=== PATIENT | female | born 1950 | race Caucasian/White ===

== ENCOUNTER 2017-08-20 07:13 | Day surgery (SDC) | payer OTHER, BC ==
--- OUTSIDE RECORDS SUMMARY | 2017-08-20 07:16 | XMS REPORT ---
:1950 Author Organization eClinicalWorks Care Team Providers Name Role Phone Lalito Perez Provider Role Unavailable Allergies, Adverse Reactions, Alerts Substance Reaction Event Type N.K.D.A. Info Not Available Non Drug Allergy Problems Problem Type Condition Code Onset Dates Condition Status Assessment Need for pneumococcal vaccination Z23 Active Assessment Encounter for screening for other Z11.59 Active viral diseases Assessment Former heavy tobacco smoker Z87.891 Active Problem GERD without esophagitis K21.9 Active Problem Osteoporosis, unspecified M81.0 Active osteoporosis type, unspecified pathological fracture presence Problem Mixed hyperlipidemia E78.2 Active Assessment GERD without esophagitis K21.9 Active Assessment Screening for colon cancer Z12.11 Active Assessment Mixed hyperlipidemia E78.2 Active Assessment Osteoporosis, unspecified M81.0 Active osteoporosis type, unspecified pathological fracture presence Medications Medication Code Code Instructions Start End Date Status Dosage System Date Potassium [facility] 07184772743 99 MG Orally Active 1 tablet Once a day Magnesium ND 03169169605 500 MG Orally Active 1 tablet Once a day with a meal Calcium ND 17542397379 600 MG Orally Active 1 tablet Once a day with meals Vitamin B12 ND 44389847967 1000 MCG Orally Active 1 tablet Once a day Fish Oil ND 87192556739 1000 MG Orally Active 1 capsule Once a day Prolia ND 85479789950 60 MG/ML August 02, Active as directed Subcutaneous 2018 Nexium ND 56315429430 20 MG Orally Active 1 capsule Once a day Simvastatin ND 76395448349 10 MG Orally August 02, Active 1 tablet in Once a day 2018 the evening Results No Known Results Immunizations Vaccine Administration Date Pneumovax August 02, 2017 Summary Purpose eClinicalWorks Submission
--- OUTSIDE RECORDS SUMMARY | 2017-08-20 07:16 | XMS REPORT ---
:1950 Author Organization eClinicalWorks Care Team Providers Name Role Phone Pillo Tillman Provider Role Unavailable Allergies, Adverse Reactions, Alerts Substance Reaction Event Type N.K.D.A. Info Not Available Non Drug Allergy Problems Problem Type Condition Code Onset Dates Condition Status Problem GERD without esophagitis K21.9 Active Problem Osteoporosis, unspecified M81.0 Active osteoporosis type, unspecified pathological fracture presence Problem Mixed hyperlipidemia E78.2 Active Assessment Encounter for screening colonoscopy Z12.11 Active Medications Medication Code Code Instructions Start End Date Status Dosage System Date Calcium ND 79475593394 600 MG Orally Active 1 tablet Once a day with meals Potassium ND 37889867490 99 MG Orally Active 1 tablet Once a day Prolia ND 91275298663 60 MG/ML August 02, Active as directed Subcutaneous 2018 Nexium ND 69718451688 20 MG Orally Active 1 capsule Once a day Fish Oil ND 54231441899 1000 MG Orally Active 1 capsule Once a day Vitamin B12 ND 66597077164 1000 MCG Orally Active 1 tablet Once a day Magnesium ND 61235611626 500 MG Orally Active 1 tablet Once a day with a meal Simvastatin ND 71323923354 10 MG Orally August 02, Active 1 tablet in Once a day 2018 the evening Results No Known Results Summary Purpose eClinicalWorks Submission
[2017-08-20] MEDS ORDERED: Ringers Lactate 1,000 ML IV ONE ×2 (07:31→07:37)
[2017-08-20] MEDS ORDERED: PROPOFOL 200 MG/20 ML VIAL IV ONE ×2 (08:24→09:37)
--- NOTE | 2017-08-20 09:32 | ENDO RPT ---
[address], [address] COLONOSCOPY PROCEDURE REPORT EXAM DATE: 08/20/2017 PATIENT NAME: Chasidy Hopkins MR #: [id number] BIRTHDATE: 1950 ATTENDING: Pillo Tillman DR STATUS: outpatient EVENTS INTERN: Nessa Lanier RN and Manas Mann INDICATIONS: The patient is a 66 yr old Female here for a colonoscopy due to colon cancer screening PROCEDURE PERFORMED: Colonoscopy with biopsy - cold polypectomy MEDICATIONS: Per Anesthesia. ESTIMATED BLOOD LOSS: None CONSENT: The patient understands the risks and benefits of the procedure and understands that these risks include, but are not limited to: sedation, allergic reaction, infection, perforation and/or bleeding. Alternative means of evaluation and treatment include, among others: physical exam, x-rays, and/or surgical intervention. The patient elects to proceed with this endoscopic procedure. DESCRIPTION OF PROCEDURE: During intra-op preparation period all mechanical medical equipment was checked for proper function. Hand hygiene and appropriate measures for infection prevention was taken. Procedure, possible complications, alternatives including, but not limited to possibility of bleeding, perforation, tear, infection, sepsis, need for surgery, need for blood transfusion, were explained to the patient. After the risks, benefits and alternatives of the procedure were thoroughly explained, Informed consent was verified, confirmed and timeout was successfully executed by the treatment team. The patient was placed in the left lateral position. A digital rectal exam was performed and revealed a skin tag and A digital rectal exam was performed and revealed internal hemorrhoids. After appropriate level of anesthesia, the scope was passed. The EC-[id number] ([id number]) endoscope was introduced through the anus and advanced to the cecum, which was identified by both the appendix and ileocecal valve. The quality of the prep was fair. The instrument was then slowly withdrawn as the colon was fully examined. Scope withdrawal time was 10 minutes. COLON FINDINGS: Mild diverticulosis was noted in the left colon. No bleeding was noted from the diverticulosis. A few small smooth semi-pedunculated polyps with friable surfaces and mucous caps were found in the rectum. Multiple biopsies were performed using cold forceps. Sample was obtained and sent to histology. A polypectomy was performed using snare cautery. The resection was complete, the polyp tissue was completely retrieved and sent to histology. Retroflexed views revealed no abnormalities. The scope was then completely withdrawn from the patient and the procedure terminated. ADVERSE EVENTS: There were no complications. IMPRESSIONS: 1. Mild diverticulosis was noted in the left colon 2. Few small semi-pedunculated polyps were found in the rectum; multiple biopsies were performed using cold forceps; polypectomy was performed using snare cautery RECOMMENDATIONS: 1. fiber rich diet 2. await biopsy results 3. avoid NSAIDS for 2 weeks 4. follow-up: office 2 week(s) 5. increase dietary water 6. hemorrhoidal hygiene RECALL: Return in 2 year(s) for Colonoscopy, pending biopsy results. Rectal polyps Pillo Tillman DR eSigned: Pillo Tillman DR 08/20/2017 9:31 AM cc: CPT CODES: ICD9 CODES: PATIENT NAME: Chasidy Hopkins MR#: [id number]
== END 2017-08-20 10:17 | disposition home or self-care (01) ==
LOC: OR 07:13
PROVIDERS: ATTEND Surgery
PROC: 0DBP8ZX Excision of Rectum, Via Natural or Artificial Opening Endoscopic, Diagnostic (ICD-10-PCS; 2017-08-20)
PROC: 0DBP8ZX Excision of Rectum, Via Natural or Artificial Opening Endoscopic, Diagnostic (ICD-10-PCS; principal; 2017-08-20 09:15)
DX: Z12.11 Encounter for screening for malignant neoplasm of colon (principal); K62.1 Rectal polyp; K57.30 Diverticulosis of large intestine without perforation or abscess without bleeding; K64.8 Other hemorrhoids; E78.00 Pure hypercholesterolemia, unspecified; Z90.49 Acquired absence of other specified parts of digestive tract; Z80.1 Family history of malignant neoplasm of trachea, bronchus and lung; Z80.8 Family history of malignant neoplasm of other organs or systems; Z82.49 Family history of ischemic heart disease and other diseases of the circulatory system; Z81.2 Family history of tobacco abuse and dependence
CPT/HCPCS: 88305

== ENCOUNTER 2018-01-26 12:22 | Emergency (ER) | payer OTHER, BC ==
--- OUTSIDE RECORDS SUMMARY | 2018-01-26 12:24 | XMS REPORT ---
[...] Date Status Dosage System Date Calcium ND 87188164604 600 MG Orally Active 1 tablet Once a day with meals Potassium ND 55692293747 99 MG Orally Active 1 tablet Once a day Prolia ND 10933108688 60 MG/ML August 02, Active as directed Subcutaneous 2018 Nexium ND 60548831490 20 MG Orally Active 1 capsule Once a day Fish Oil ND 39857630891 1000 MG Orally Active 1 capsule Once a day Vitamin B12 ND 34706989601 1000 MCG Orally Active 1 tablet Once a day Magnesium ND 67358769225 500 MG Orally Active 1 tablet Once a day with a meal Simvastatin ND 50145298371 10 MG Orally August 02, Active 1 tablet in Once a day 2018 the evening Results No Known Results Summary Purpose eClinicalWorks Submission
--- OUTSIDE RECORDS SUMMARY | 2018-01-26 12:24 | XMS REPORT ---
:1950 Author Organization eClinicalWorks Care Team Providers Name Role Phone Lalito Preez Provider Role Unavailable Allergies, Adverse Reactions, Alerts [...] End Date Status Dosage System Date Potassium [facility] 37682577069 99 MG Orally Active 1 tablet Once a day Magnesium ND 64783232499 500 MG Orally Active 1 tablet Once a day with a meal Calcium ND 60146348995 600 MG Orally Active 1 tablet Once a day with meals Vitamin B12 ND 57549496336 1000 MCG Orally Active 1 tablet Once a day Fish Oil ND 31607325332 1000 MG Orally Active 1 capsule Once a day Prolia ND 87238004805 60 MG/ML August 02, Active as directed Subcutaneous 2018 Nexium ND 97235793618 20 MG Orally Active 1 capsule Once a day Simvastatin ND 49264456739 10 MG Orally August 02, Active 1 tablet in Once a day 2018 the evening Results No Known Results Immunizations Vaccine Administration Date Pneumovax August 02, 2017 Summary Purpose eClinicalWorks Submission
--- OUTSIDE RECORDS SUMMARY | 2018-01-26 12:24 | XMS REPORT ---
:1950 Author Organization eClinicalWorks Care Team Providers Name Role Phone Lalito Perez Provider Role Unavailable Allergies No Known Allergies Problems Problem Type Condition Code Onset Dates Condition Status Assessment Former heavy tobacco smoker Z87.891 Active Problem GERD without esophagitis K21.9 Active Problem Osteoporosis, unspecified M81.0 Active osteoporosis type, unspecified pathological fracture presence Problem Mixed hyperlipidemia E78.2 Active Assessment Osteoporosis, unspecified M81.0 Active osteoporosis type, unspecified pathological fracture presence Assessment GERD without esophagitis K21.9 Active Assessment Mixed hyperlipidemia E78.2 Active Medications Medication Code Code Instructions Start End Date Status Dosage System Date Potassium [facility] 94569330473 99 MG Orally Active 1 tablet Once a day Fish Oil [facility] 48547751372 1000 MG Orally Active 1 capsule Once a day Prolia [facility] 95449857336 60 MG/ML Active as directed Subcutaneous Simvastatin ND 23010155577 20 MG Orally Active 1 tablet in Once a day the evening Vitamin B12 ND 28874615744 1000 MCG Orally Active 1 tablet Once a day Calcium ND 62451760678 600 MG Orally Active 1 tablet Once a day with meals Magnesium ND 08437027427 500 MG Orally Active 1 tablet Once a day with a meal Nexium ND 49372385526 20 MG Orally Active 1 capsule Once a day Results No Known Results Summary Purpose eClinicalWorks Submission
--- OUTSIDE RECORDS SUMMARY | 2018-01-26 12:24 | XMS REPORT ---
[...] presence Problem Mixed hyperlipidemia E78.2 Active Assessment Follow-up exam V67.9 Active Medications Medication Code Code Instructions Start End Date Status Dosage System Date Vitamin B12 [facility] 57313095795 1000 MCG Orally Active 1 tablet Once a day Calcium ND 21801688158 600 MG Orally Active 1 tablet Once a day with meals Potassium ND 38262066190 99 MG Orally Active 1 tablet Once a day Nexium ND 18851192659 20 MG Orally Active 1 capsule Once a day Prolia ND 14837842358 60 MG/ML August 02, Active as directed Subcutaneous 2018 Simvastatin ND 22908421973 10 MG Orally August 02, Active 1 tablet in Once a day 2018 the evening Fish Oil ND 45271729751 1000 MG Orally Active 1 capsule Once a day Magnesium ND 98469433299 500 MG Orally Active 1 tablet Once a day with a meal Results No Known Results Summary Purpose eClinicalWorks Submission
[2018-01-26] MEDS ORDERED: MECLIZINE HCL 12.5 MG TAB ONE ×2 (13:10→13:28)
[2018-01-26] MEDS ORDERED: NA CHLORIDE 0.9% 500 ML ONE (13:10)
[2018-01-26] MEDS ORDERED: ONDANSETRON 4 MG/2 ML VIAL ONE (13:10)
--- NOTE | 2018-01-26 13:15 | RAD REPORT ---
EXAM DESCRIPTION: CT - Head Brain Wo Cont - 01/26/2018 1:05 pm CLINICAL HISTORY: Dizziness, syncope COMPARISON: None. TECHNIQUE: Axial 5 mm thick images of the head were obtained without IV contrast. All CT scans are performed using dose optimization technique as appropriate and may include automated exposure control or mA/KV adjustment according to patient size. FINDINGS: No intracranial hemorrhage, mass, edema or shift of mid-line structures. No acute infarcti on changes seen. No significant atrophy or chronic ischemic change. Ventricles are normal. Mastoid air cells and visualized portions of the paranasal sinuses are clear. No acute bony findings. IMPRESSION: Negative CT head examination for acute or suspicious finding.
[2018-01-26 13:22] LABS: Absolute Lymphocytes (CBC) 1.7 K/uL (0.7-4.9); Absolute Monocytes 0.4 K/uL (0.1-1.3); Absolute Neutrophil 3.3 K/uL (1.8-8.0); Basophils % 0.4 % (0-1.3); Eosinophils % 2.7 % (0-4.4); Lymphocytes % 30.2 % (15.3-44.8); MCH 31.4 pg (27.0-35.0); MCV 89.3 fL (80-100); MPV 7.8 fL (7.6-11.3); Monocytes % 6.4 % (3.3-12.3); RBC Red Blood Cell Count 4.37 M/uL (3.86-4.86)
--- NOTE | 2018-01-26 13:29 | EKG ---
Test Date: 2018-01-26 Test Time: 13:11:06 Logger Driving Horses: ALEX MEASUREMENT RESULTS: Intervals: Rate: 65 WI: 188 QRSD: 76 QT: 398 QTc: 413 [place]: P: 41 WI: 188 QRS: -9 T: 20 INTERPRETIVE STATEMENTS: Normal sinus rhythm Normal ECG No previous ECG available for comparison Electronically Signed On 01-26-18 13:28:54 TUBING MACHINE TENDER by Michele Katz
[2018-01-26 13:37] LABS: Protime INR 0.92
[2018-01-26 13:44] LABS: BUN Blood Urea Nitrogen 16 mg/dL (7-18); Bicarbonate 28 mmol/L (21-32); Glucose Level 115 mg/dL (74-106); Magnesium 2.2 mg/dL (1.8-2.4); Potassium 3.9 mmol/L (3.5-5.1); Sodium Level 142 mmol/L (136-145); Troponin (Emerg Dept Use Only) < 0.02 ng/mL (0.0-0.045)
--- NOTE | 2018-01-26 14:16 | RAD REPORT ---
EXAM DESCRIPTION: MRI - Brain Wo Cont - 01/26/2018 1:59 pm CLINICAL HISTORY: Syncope, dizziness, stroke-like symptoms COMPARISON: CT head same date TECHNIQUE: Sagittal T1-weighted images were obtained along with axial PD, heavily T2-weighted and T2 -FLAIR images. Axial DWI and ADC mapping sequences were also obtained along with coronal heavily T2-w eighted images. FINDINGS: No intracranial hemorrhage, mass or acute infarction. There is no edema or shift of midlin e structures. Trace amounts of chronic ischemic change seen in the cerebral white matter. No signific ant atrophy. Ventricles are normal. Perez-matter/white matter junction is preserved. Signal voids are seen as a normal finding in the major intracranial vessels. Globes and orbital contents unremarkable. No sella or supra sella abnormality. No tonsillar ectopia. Mastoid air cells and paranasal sinuses are clear. IMPRESSION: No acute infarction. No acute intracranial finding. Trace amounts of chronic ischemic change with no significant atrophy.
--- NOTE | 2018-01-26 14:21 | ER ---
Nurse's Notes [facility] Name: Chasidy Rivera Age: 67 yrs Sex: Female : 1950 Arrival Date: 01/26/2018 Time: 12:26 Bed 13 Private MD: Lalito Perez Diagnosis: Vertigo Presentation: 01/26 12:35 Presenting complaint: Patient states: Dizziness for the past 3 days. Denies fever. aj1 States that on Wednesday she went out drinking with her sisters and passed out in the bathroom, she had some dizziness the next day, but figured it was from drinking the day before, but then yesterday the dizziness got worse. Transition of care: patient was not received from another setting of care. Onset of symptoms was January 23, 2018. Risk Assessment: Do you want to hurt yourself or someone else? Patient reports no desire to harm self or others. Initial Sepsis Screen: Does the patient meet any 2 criteria? No. Patient's initial sepsis screen is negative. Does the patient have a suspected source of infection? No. Patient's initial sepsis screen is negative. Care prior to arrival: None. 12:35 Method Of Arrival: Ambulatory aj1 12:35 Acuity: STELLA 3 aj1 Triage Assessment: 12:38 General: Appears in no apparent distress. comfortable, Behavior is calm, cooperative, aj1 appropriate for age. Pain: Denies pain. Neuro: Level of Consciousness is awake, alert, obeys commands. Neuro: Reports dizziness. Cardiovascular: Patient's skin is warm and dry. Respiratory: Airway is patent Respiratory effort is even, unlabored, Respiratory pattern is regular, symmetrical. Historical: - Allergies: 12:38 No Known Allergies; aj1 - Home Meds: 12:38 Nexium Oral [Active]; Calcium Carbonate Oral [Active]; Potassium Chloride Oral [Active];aj1 - PMHx: 12:38 GERD; aj1 12:38 Osteoporosis; aj1 - PSHx: 12:38 Cholecystectomy; aj1 - Immunization history:: Flu vaccine is up to date. - Social history:: Smoking status: Patient/guardian denies using tobacco. - Ebola Screening: : Patient denies travel to an Ebola-affected area in the 21 days before illness onset. - Family history:: not pertinent. - Hospitalizations: : No recent hospitalization is reported. Screenin:45 Abuse screen: Denies threats or abuse. Denies injuries from another. Nutritional hb screening: No deficits noted. Tuberculosis screening: No symptoms or risk factors identified. Fall Risk Total Connelly Fall Scale indicates Low Risk Score (25-44 pts). Fall prevention measures have been instituted. Side Rails Up X 2 Frequent Obs/Assesments occuring Family Present and informed to notify staff if they need to leave bedside As available Patient and Family Educated on Fall Prevention Program and strategies. Assessment: 12:45 General: Appears in no apparent distress. Behavior is calm, cooperative. Pain: Denies hb pain. Neuro: Level of Consciousness is awake, alert, obeys commands, Oriented to person, place, time, situation, Reports dizziness. Cardiovascular: Heart tones S1 S2 present Capillary refill < 3 seconds Patient's skin is warm and dry. Respiratory: Airway is patent Respiratory effort is even, unlabored, Respiratory pattern is regular, symmetrical, Breath sounds are clear bilaterally. GI: No signs and/or symptoms were reported involving the gastrointestinal system. : No signs and/or symptoms were reported regarding the genitourinary system. EENT: No signs and/or symptoms were reported regarding the EENT system. Derm: No signs and/or symptoms reported regarding the dermatologic system. Skin is intact, is healthy with good turgor, Skin is pink, warm \T\ dry. Musculoskeletal: No signs and/or symptoms reported regarding the musculoskeletal system. 13:45 Reassessment: Patient appears in no apparent distress at this time. Patient and/or hb family updated on plan of care and expected duration. Pain level reassessed. Patient is alert, oriented x 3, equal unlabored respirations, skin warm/dry/pink. Vital Signs: 12:38 BP 139 / 73; Pulse 72; Resp 18; Temp 98.1; Pulse Ox 99% on R/A; Weight 63.5 kg (R); aj1 Height 5 ft. 1 in. (154.94 cm) (R); Pain 0/10; 13:45 BP 136 / 76; Pulse 74; Resp 15; Pulse Ox 99% on R/A; hb 12:38 Body Mass Index 26.45 (63.50 kg, 154.94 cm) aj1 ED Course: 12:26 Patient arrived in ED. sb2 12:26 Lalito Perez DO is Private Physician. sb2 12:37 Triage completed. aj1 12:38 Arm band placed on Patient placed in an exam room. aj1 12:45 Everett Palma MD is Attending Physician. rn 12:48 Patient has correct armband on for positive identification. Placed in gown. Bed in low hb position. Call light in reach. Side rails up X 1. 12:52 Flora Bragg RN is Primary Nurse. hb 13:05 CT Head Brain wo Cont In Process Unspecified. EDMS 13:20 EKG done, by geotechnical operating engineer. reviewed by Everett Palma MD. 13:45 Brain Wo Cont MRI In Process Unspecified. EDMS 13:46 Patient moved to MRI via wheelchair. 14:00 MRI completed. Patient tolerated well. Patient moved back from MRI. ka 14:20 David Frank MD is Referral Physician. rn 14:40 No provider procedures requiring assistance completed. IV discontinued, intact, hb bleeding controlled, No redness/swelling at site. Pressure dressing applied. Administered Medications: 13:16 Drug: Zofran 4 mg Route: IVP; Site: right antecubital; sv 14:10 Follow up: Response: No adverse reaction hb 13:16 Drug: NS 0.9% 500 ml Route: IV; Rate: bolus; Site: right antecubital; sv 14:10 Follow up: Response: No adverse reaction; IV Status: Completed infusion hb 13:33 Drug: Meclizine 50 mg Route: PO; hb 14:10 Follow up: Response: No adverse reaction hb Outcome: 14:21 Discharge ordered by MD. rn 14:40 Discharged to home ambulatory, with friend. hb 14:40 Condition: stable 14:40 Discharge instructions given to patient, Instructed on discharge instructions, follow up and referral plans. medication usage, Demonstrated understanding of instructions, follow-up care, medications, Prescriptions given X 2. 14:40 Patient left the ED. hb Signatures: Dispatcher [employer] EDUT Tamar Lehman RN RN aj1 Daphne Price RN RN sv Compean, Lorena lc Nieto, Roman, MD MD rn Harrell, Venessa Danielle Neil Flora Bragg, KAYDEN RN Delia Maddox sb2
--- NOTE | 2018-01-26 14:21 | EDPHYS ---
Physician Documentation [facility] Name: Chasidy Rivera Age: 67 yrs Sex: Female : 1950 Arrival Date: 01/26/2018 Time: 12:26 Bed 13 Private MD: Lalito Perez ED Physician Everett Palma HPI: 01/26 13:55 This 67 yrs old Female presents to ER via Ambulatory with complaints of rn Dizziness. 13:55 The patient presents with sense of spinning, vertigo. Onset: The symptoms/episode rn began/occurred 2 day(s) ago. Modifying factors: The symptoms are alleviated by holding head still, the symptoms are aggravated by movement of head, standing up, changing position. Severity of symptoms: At their worst the symptoms were moderate in the emergency department the symptoms have improved. The patient has not experienced similar symptoms in the past. Reports was drinking Wednesday night, passed out Wednesday night, was ok so didn't seek evaluation, Wednesday woke up with dizziness, feels like spinning, did research and feels like is vertigo. Worse with turning head and change of position. No other focal neurological complaint. No chest pain/sob/abd pain.. Historical: - Allergies: 12:38 No Known Allergies; aj1 - Home Meds: 12:38 Nexium Oral [Active]; Calcium Carbonate Oral [Active]; Potassium Chloride Oral [Active];aj1 - PMHx: 12:38 GERD; aj1 12:38 Osteoporosis; aj1 - PSHx: 12:38 Cholecystectomy; aj1 - Immunization history:: Flu vaccine is up to date. - Social history:: Smoking status: Patient/guardian denies using tobacco. - Ebola Screening: : Patient denies travel to an Ebola-affected area in the 21 days before illness onset. - Family history:: not pertinent. - Hospitalizations: : No recent hospitalization is reported. ROS: 13:55 Constitutional: Negative for fever, chills, and weight loss, Eyes: Negative for injury, rn pain, redness, and discharge, Neck: Negative for injury, pain, and swelling, Cardiovascular: Negative for chest pain, palpitations, and edema, Respiratory: Negative for shortness of breath, cough, wheezing, and pleuritic chest pain, Abdomen/GI: Negative for abdominal pain, diarrhea, and constipation, MS/Extremity: Negative for injury and deformity, Skin: Negative for injury, rash, and discoloration, Neuro: Negative for headache, weakness, numbness, tingling, and seizure. Exam: 13:55 Constitutional: This is a well developed, well nourished patient who is awake, alert, rn and in no acute distress. Head/Face: Normocephalic, atraumatic. Eyes: Pupils equal round and reactive to light, extra-ocular motions intact. Lids and lashes normal. Conjunctiva and sclera are non-icteric and not injected. Cornea within normal limits. Periorbital areas with no swelling, redness, or edema. Neck: Trachea midline, no thyromegaly or masses palpated, and no cervical lymphadenopathy. Supple, full range of motion without nuchal rigidity, or vertebral point tenderness. No Meningismus. Cardiovascular: Regular rate and rhythm. No pulse deficits. Respiratory: Lungs have equal breath sounds bilaterally, clear to auscultationNo increased work of breathing, no retractions or nasal flaring. Abdomen/GI: Soft, non-tender Skin: Warm, dry with normal turgor. Normal color with no rashes, no lesions, and no evidence of cellulitis. MS/ Extremity: Pulses equal, no cyanosis. Neurovascular intact. Full, normal range of motion. Equal circumference. Neuro: Awake and alert, GCS 15, oriented to person, place, time, and situation. Cranial nerves II-XII grossly intact. Motor strength 5/5 in all extremities. Sensory grossly intact. Cerebellar exam normal. Vital Signs: 12:38 BP 139 / 73; Pulse 72; Resp 18; Temp 98.1; Pulse Ox 99% on R/A; Weight 63.5 kg (R); aj1 Height 5 ft. 1 in. (154.94 cm) (R); Pain 0/10; 13:45 BP 136 / 76; Pulse 74; Resp 15; Pulse Ox 99% on R/A; hb 12:38 Body Mass Index 26.45 (63.50 kg, 154.94 cm) aj1 MDM: 12:45 Patient medically screened. rn 14:18 Differential diagnosis: cardiac arrhythmia, CVA, generalized weakness, idiopathic rn dizziness, near-syncope, vertigo. Data reviewed: vital signs, nurses notes, lab test result(s), EKG, radiologic studies, CT scan, MRI, and as a result, I will discharge patient. Counseling: I had a detailed discussion with the patient and/or guardian regarding: the historical points, exam findings, and any diagnostic results supporting the discharge/admit diagnosis, lab results, radiology results, the need for outpatient follow up, to return to the emergency department if symptoms worsen or persist or if there are any questions or concerns that arise at home. Response to treatment: the patient's symptoms have mildly improved after treatment, and as a result, I will discharge patient. Special discussion: I discussed with the patient/guardian in detail that at this point there is no indication for admission to the hospital. It is understood, however, that if the symptoms persist or worsen the patient needs to return immediately for re-evaluation. Based on the history and exam findings, there is no indication for further emergent testing or inpatient evaluation. I discussed with the patient/guardian the need to see the neurologist for further evaluation of the symptoms. 01/26 12:52 Order name: Basic Metabolic Panel; Complete Time: 14: rn 01/26 12:52 Order name: CBC with Diff; Complete Time: 14: rn 01/26 12:52 Order name: Magnesium; Complete Time: 14: rn 01/26 12:52 Order name: Protime (+inr); Complete Time: 14: rn 01/26 12:52 Order name: Ptt, Activated; Complete Time: 14: rn 01/26 12:52 Order name: Troponin (emerg Dept Use Only); Complete Time: 14: rn 01/26 12:52 Order name: CT Head Brain wo Cont; Complete Time: 13: rn 01/26 12:52 Order name: EKG; Complete Time: 12:52 rn 01/26 12:52 Order name: Cardiac monitoring; Complete Time: 13: rn 01/26 12:52 Order name: EKG - Nurse/Tech; Complete Time: 13:16 rn 01/26 13:17 Order name: Brain Wo Cont MRI; Complete Time: 14:18 rn 01/26 12:52 Order name: IV Saline Lock; Complete Time: 13: rn 01/26 12:52 Order name: Labs collected and sent; Complete Time: 13: rn 01/26 12:52 Order name: NPO; Complete Time: 13: rn 01/26 12:52 Order name: O2 Per Protocol; Complete Time: 13:33 rn 01/26 12:52 Order name: O2 Sat Monitoring; Complete Time: 13:33 rn 01/26 12:52 Order name: Urine Dipstick-Ancillary (obtain specimen); Complete Time: 13:33 rn Administered Medications: 13:16 Drug: Zofran 4 mg Route: IVP; Site: right antecubital; sv 14:10 Follow up: Response: No adverse reaction hb 13:16 Drug: NS 0.9% 500 ml Route: IV; Rate: bolus; Site: right antecubital; sv 14:10 Follow up: Response: No adverse reaction; IV Status: Completed infusion hb 13:33 Drug: Meclizine 50 mg Route: PO; hb 14:10 Follow up: Response: No adverse reaction hb Disposition: 01/26/18 14:21 Discharged to Home. Impression: Vertigo. - Condition is Stable. - Discharge Instructions: Benign Positional Vertigo, Vertigo. - Prescriptions for Zofran ODT 4 mg Oral tablet,disintegrating - place 1 tablet by TRANSLINGUAL route every 8 hours As needed; 20 tablet. Meclizine 25 mg Oral Tablet - take 1 tablet by ORAL route every 8 hours As needed; 30 tablet. - Medication Reconciliation Form, Thank You Letter, Antibiotic Education, Prescription Opioid Use form. - Follow up: David Frank MD; When: 2 - 3 days; Reason: Recheck today's complaints, Re-evaluation by your physician. - Problem is new. - Symptoms have improved. Signatures: Dispatcher [employer] EDOR Tamar Lehman RN RN aj1 Daphne Price RN RN Everett Palma MD MD rn Baxter, Heather, RN RN hb Corrections: (The following items were deleted from the chart) 14:40 14:21 01/26/2018 14:21 Discharged to Home. Impression: Vertigo. Condition is Stable. hb Forms are Medication Reconciliation Form, Thank You Letter, Antibiotic Education, Prescription Opioid Use. Follow up: David Frank; When: 2 - 3 days; Reason: Recheck today's complaints, Re-evaluation by your physician. Problem is new. Symptoms have improved. rn
== END 2018-01-26 14:40 | disposition home or self-care (01) ==
LOC: ER 12:22
DX: R42 Dizziness and giddiness (principal); K21.9 Gastro-esophageal reflux disease without esophagitis
CPT/HCPCS: 36415; 70450; 70551; 80048; 83735; 84484; 85025; 85610; 85730; 93005; 96361; 96374; 99284; J2405

== ENCOUNTER 2020-07-30 08:19 | Day surgery (SDC) | payer OTHER, BC ==
[2020-07-24 11:12] LABS: Absolute Lymphocytes (CBC) 2.4 K/uL (0.7-4.9); Basophils % 0.8 % (0-1.3); Hematocrit 41.6 % (36.0-45.0); Lymphocytes % 35.3 % (15.3-44.8); MPV 7.5 fL (7.6-11.3); RBC Red Blood Cell Count 4.67 M/uL (3.86-4.86)
[2020-07-24 11:13] LABS: Urine Appearance CLEAR (Clear); Urine Bilirubin NEGATIVE (Negataive); Urine Blood NEGATIVE (Negative); Urine Color YELLOW (Yellow); Urine Glucose NEGATIVE (Negative); Urine Protein NEGATIVE (Negative); Urine Urobilinogen 0.2 mg/dL (0.2-1.0)
[2020-07-24 11:17] LABS: Urine Microscopic Reflex NO UMIC
[2020-07-24 11:21] LABS: Protime INR 0.91
[2020-07-24 11:37] LABS: Potassium 4.2 mmol/L (3.5-5.1)
[2020-07-30] MEDS ORDERED: NA CHLORIDE 0.9% 100 ML IV ONE (09:17)
[2020-07-30] MEDS ORDERED: CEFAZOLIN SODIUM 1 GM/VIAL ONE (09:17)
[2020-07-30] MEDS ORDERED: MIDAZOLAM HCL 2 MG/2 ML INJ ONE (09:31)
[2020-07-30] MEDS ORDERED: propofoL 200 MG/20 ML VIAL IV ONE (09:31)
[2020-07-30] MEDS ORDERED: dexAMETHasone 10 MG/ML VIAL ONE (09:31)
[2020-07-30] MEDS ORDERED: FENTANYL CITR 100 MCG/2 ML ONE ×2 (09:31→12:06)
[2020-07-30] MEDS ORDERED: ONDANSETRON 4 MG/2 ML VIAL ONE (09:32)
[2020-07-30] MEDS ORDERED: LIDOCAINE 1% MPF 2 ML AMPULE ONE (09:32)
[2020-07-30] MEDS ORDERED: ROCURONIUM 50 MG/5 ML VIAL IV ONE (09:32)
[2020-07-30] MEDS: CEFAZOLIN/SWI 2gm 2 GM/20 ML SYR ONE ×2 (10:25→10:35)
[2020-07-30] MEDS ORDERED: KETAMINE HCL 500 MG/5 ML VIAL ONE (10:35)
[2020-07-30] MEDS: VASOPRESSIN 20 UNIT/ML VIAL ONE ×2 (10:53→11:10)
[2020-07-30] MEDS: Ringers Lactate 1,000 ML IV ONE ×2 (11:23→11:26)
[2020-07-30] MEDS ORDERED: VECURONIUM 10 MG/VIAL IV ONE (11:56)
[2020-07-30] MEDS ORDERED: Ringers Lactate 1,000 ML IV ONE ×2 (13:43)
[2020-07-30] MEDS ORDERED: ONDANSETRON 4 MG/2 ML VIAL IV PRN (13:47)
[2020-07-30] MEDS ORDERED: MORPHINE 2 MG/ML SYR IV PRN (13:47)
[2020-07-30] MEDS ORDERED: PROMETHAZINE INJ 25 MG/ML AMP IV PRN (13:47)
[2020-07-30] MEDS ORDERED: ACETAMINOPHEN 500 MG TAB PO PRN (13:47)
--- NOTE | 2020-07-30 13:54 | P.BOP ---
Preoperative diagnosis: stage3 posteriorwall defect, post enterocele RON Postoperative diagnosis: perineal body defect, apical prolapse Primary procedure: hussein SSLFcolpopexy, post wall/enterocele repair w biologic graft Secondary procedure: perineorrhaphy, urethral bulking with Bulkamid Dye Weigher Helper: Radha Velasquez Estimated blood loss: 50 Specimen: none Findings: -3/-3/-5/5/thin/7/0/+2/na Anesthesia: General Complications: None Drain(s): Urinary catheter Implants: dermapure biologic graft Transferred to: Recovery Room Condition: Good
[2020-07-30 14:30] VITALS: O2SAT 95
[2020-07-30] MEDS: Ringers Lactate 1,000 ML IV SCH (20:53)
[2020-07-31] MEDS: Ringers Lactate 1,000 ML IV SCH (06:25)
[2020-07-31 07:32] VITALS: BP 116/57
[2020-07-31 07:47] VITALS: BMI 27.7
[2020-07-31] MEDS ORDERED: MAGNESIUM OXIDE 400 MG TAB PO SCH (09:00)
[2020-07-31] MEDS ORDERED: PANTOPRAZOLE 40MG TABLET PO SCH (09:00)
[2020-07-31 14:08] VITALS: TEMP 97.9
--- NOTE | 2020-09-09 07:33 | OP ---
Date of Procedure: 07/30/2020 Surgeon: Agnes Schreiber MD Shade Cloth Finisher: Radha Velasquez. Preoperative Diagnoses: Stage III posterior wall defect, posterior enterocele, stress urinary incont inence. Postoperative Diagnoses: Stage III posterior wall defect, posterior enterocele, stress urinary incon tinence, and perineal body defect vaginal wall prolapse. Procedures Performed: 1.Bilateral . 2.Posterior wall repair along with posterior enterocele repair, biologic graft used for graft augmen mark posterior repair. 3.Perineorrhaphy. 4.Urethral bulking with Bulkamid. Anesthesia: General. Specimens: No specimens. Complications: No complications. Ebl: 50. Drains: Adams catheter. Implant: DermaPure biologic graft and Bulkamid. Condition: The patient's condition was stable. Findings: The patient's pop Q -3, -3, -5, 5, thin 7, 0, +2 and nonapplicable. Procedure In Detail: After informed consent was verified, patient was taken back to OR, placed in a supine fashion on the operating table. 2 g of Ancef were given. She was placed in dorsal lithotomy position. The time-out was done. SCDs were placed. The patient was placed in a dorsal lithotomy po sition. Lower abdomen, vulva, vagina, and perineum were prepped and draped in a sterile fashion. Al l the positioning was checked and made optimal. Adams was placed to drain the bladder and clamped with a Anne Marie and retracted superiorly. Pop Q was a s dictated above. The patient had significant posterior wall defect without any site-specific defect , so plan was to most likely perform a bilateral sacrospinous ligament fixation, colpopexy that would hook a biologic graft to ligaments that were secure and that this could be extended to reconstruct t he posterior vaginal wall placing the DermaPure biologic graft to augment the posterior repair. Allis clamps were placed at the remnants of the hymen and the posterior midline. Dilute vasopressin 20 units in 40 cc of normal saline about 40 units was injected in the midline and on the lateral aspe cts of the posterior vaginal wall as well as the perineal body. A jurgen-shaped incision was made o n the perineum. The skin was excised with the help of 15 blade. Then another jurgen-shaped incisio n was made in the distal half of the posterior vaginal wall through the vaginal epithelium, sub epith elium, and all this was peeled off the connective tissue over the underlying enterocele. Once this e ntire area of the vaginal epithelium was taken out, the posterior wall was dissected superiorly, late rally, and inferiorly all the way to the perineal body. Both deep transverse perenei scarred areas w ere exposed well. The lateral mccord of the posterior compartment were exposed by dissecting the post erior wall contents away from the epithelial layers. Once this was done all the way to the level of the apex, posterior enterocele was seen clearly. Then, peritoneum covering the small bowel. Ischial spines were palpated through the vaginal wall on both sides. Then, once the patient was plac ed in dorsal lithotomy position, dissection was carried to the ipsilateral ischial spine. The spine was cleared up and sacrospinous ligament complex was dissected by sweeping the finger lateral to medi al and posteriorly along the ligament. Once this was done, the rectum was-cleaned off the sacrospino us ligament complex and this was well layed out for the suture. Similar dissection was made on the o ther side, cleaning of the bowel from the ligament. Once both of these were exposed, the posterior e nterocele was repaired with the help of a 3-0 Monocryl suture in a pursestring fashion x2. This redu cyndy the posterior enterocele and exposed the vaginal vault better as well as gave better exposure and access to the lateral posterior wall. Capio device was taken with Prolene sutures, 1 on each side to pass through the middle of the sacrosp inous ligament slightly 2 cm of lateral measuring 2 cm from the ischial spine. Carefully this was passed through the ligament without encircling it on both sides and these were held on clamp s. Three 2-0 Prolene sutures were taken in the posterior midline and then attached from the connecti ve tissue and the scar at the vaginal vault and these were connected to the central area of the biolo gic graft. The graft was fashioned such that there were 8 cm between the ischial spines and then 3 s utures were placed with 2-0 Prolene at the center on either sides of the vaginal vault and apex in th e center. Once these were tied down, then the sacrospinous sutures were hooked on to the biologic gr aft. Then carefully the graft was in laid after soaking in the antibiotic solution as per package di rectarash. It was fashioned with trapezoid with the longer length at 9 to 10 cm and then on the infer ior aspect to 4 cm. The total length of the graft was about 6 cm. Once the sacrospinous sutures were attached to the graft, they were tied down. The central Prolene s utures were placed through the graft and they were tied down as well. First the central sutures were tied, then the sacrospinous. Once all this was done, there was a good lay up for the vaginal wall s uspension. Then moved off to repairing the posterior wall. 2-0 PDS was used to continuously run thi s connective tissue to imbricate and bring together the lateral good condenser connective tissue. Th ere was no possibility to reattach the rectovaginal septum to the apex as this was creating too much tension on the apex as the vaginal length was only 5 cm. Plan was to leave the graft as well expanded as possible without tension. So, proceeded with the sut ures being tied down all top. Once they were tied down, the lateral margins of the graft were tacked to the connective tissue at the lateral vaginal sulci. Once all the graft was laid and the posterior vaginal wall was repaired with a 2-0 continuous PDS, Al lis clamps were placed at the hymenal area where evaluated tissues were raised up already. So 2-0 Vi cryl sutures were taken from [id number]. They were placed to close the defect that could not be se cured using a delayed absorbable. Once the perineal body reconstruction was done, rectovaginal finger was placed. There was excellent support and good a thick perineal body. Once this was done, gloves were changed and lateral attachme nts of the graft for at least 3 cm from the sacrospinous . Once all the sutures were place d, the lateral margins were tacked of the graft to the lateral wall with 2-0 Vicryl sutures and then perineal body reconstruction was done, and the graft was attached. 2-0 Vicryl was used to provide co ntinuous running locked sutures. Then from [id number] as an inverted T. This was closed with a co ntinuous running suture. Then, the perineum was closed without any problems with the rest of the 3-0 Vicryl suture. Rectal exam was done and there was no evidence of any trauma to the rectum or suture s anywhere close. Directing the attention to the urethral bulking the pediatric cystoscope was taken, attach ed with the Bulkamid sheath. The Bulkamid needle was taken with 1 mL syringe of Bulkamid and mud temperer d firmly. The bladder was drained. Cystoscopy was performed with a 30-degree lens and a 17-Montserratian s issa. Excellent jets of urine from both ureteric orifices. No evidence of any tumor or diverticula or stones. Once this was completed, I was able to adjust the flow of the fluid through the Bulkamid system optimally to gentle trickle, then inserted into the urethra all the way into the bladder. Bl adder was quickly surveyed. Then, the needle hub was placed at 5 o'clock position and the Bulkamid n eedle was introduced into the sheath. Once at the internal os, the needle was advanced up to the 2 c m helen, was visible at the level of the meatus. Once this was done, then the entire system was pulle d into the urethra about 1.5 cm. Needle was pulled as well about the same distance and then staying parallel with the urethral wall and pushing over to that side where I was injecting the bevel facing up. The platelet injection was started at the sub mucosal level and 5 cc was given to create a cushi on in this area. Then a second cushion was injected at 11 o'clock position, then at 7 to 8 o'clock p osition as well as in between the 7 and 11 position to create a bigger cushion almost coming to the m idline. Then on the opposite side, the top 2 o'clock was injected in a similar fashion, and once the re was good appearance of a circular annular occlusion, the bladder was drained using a 12-Montserratian Fol ey after removing the Bulkamid system. Once this was done, the Bulkamid syringe was placed to visual ize if there was good apposition. Scope was removed and Adams was left in place. Somewhat less than 2 mL was injected . All instruments were removed. Vagina was packed. Instrument, needle , and sponge counts were correct at the end of the case. A 12-Montserratian Adams was left in place. She was taken to PACU in stable condition. TEETEE Voice ID: [id number] Report ID: [id number]
== END 2020-07-31 11:15 | disposition home or self-care (01) ==
LOC: OR 08:19 → 2ND-WC 14:18 → OR 07-31 11:15
PROVIDERS: ATTEND Obstetrics & Gynecology
PROC: 0USG7ZZ Reposition Vagina, Via Natural or Artificial Opening (ICD-10-PCS; 2020-07-30)
PROC: 0JQC0ZZ Repair Pelvic Region Subcutaneous Tissue and Fascia, Open Approach (ICD-10-PCS; 2020-07-30)
PROC: 0HQ9XZZ Repair Perineum Skin, External Approach (ICD-10-PCS; 2020-07-30)
PROC: 0TVD8ZZ Restriction of Urethra, Via Natural or Artificial Opening Endoscopic (ICD-10-PCS; principal; 2020-07-30 09:30)
DX: N39.3 Stress incontinence (female) (male) (principal); N81.5 Vaginal enterocele; N32.81 Overactive bladder; N81.6 Rectocele; N95.2 Postmenopausal atrophic vaginitis; Z20.822 Contact with and (suspected) exposure to COVID-19
CPT/HCPCS: 51715; 57282; 57250; 85025; 80048; 36415; 86900; 86850; 85610; 86901; 85730; 81003; U0002; J2704; J2250; J3010 ×2; J1100; J2270; J0690 ×2; J7120 ×5; J2405; L8606